=== PATIENT | female | born 1965 | race Caucasian/White ===

== ENCOUNTER → 2024-08-08 08:01 | Outpatient (REF) | payer OTHER, SELFPAY | LOC: HWRAD 08:01 | PROVIDERS: ATTENDING PHYSICIAN Physician Assistant Medical | DX: F17.210 Nicotine dependence, cigarettes, uncomplicated (principal) | CPT/HCPCS: 71271 ==

== ENCOUNTER → 2024-08-22 08:38 | Outpatient (REF) | payer OTHER, SELFPAY | LOC: HWWDC 08:38 | PROVIDERS: ATTENDING PHYSICIAN Physician Assistant Medical | DX: M85.80 Other specified disorders of bone density and structure, unspecified site (principal); Z12.31 Encounter for screening mammogram for malignant neoplasm of breast | CPT/HCPCS: 77063; 77067; 77080 ==

== ENCOUNTER 2024-10-20 13:35 | Inpatient (IN) | payer OTHER, SELFPAY ==
[2024-10-20] VITALS (10 sets, daily range): BP systolic 93–137; BP diastolic 64–87; BMI 23.8; BMI 22.7
[2024-10-20 10:50] LABS: % Basophils 0.5 % (0-2); % Eosinophils 2.7 % (0-6); % Immature Granulocytes 0.5 % (0-0.5); % Lymphocytes 12.4 % (20.5-51.1); % Monocytes 4.6 % (1.7-9.3); % Neutrophils 79.3 % (42.2-75.2); Absolute Basophils 0.1 10^3/uL (0-0.2); Absolute Eosinophils 0.3 10^3/uL (0-0.7); Absolute Immature Granulocytes 0.1 10^3/uL (0-0.05); Absolute Lymphocytes 1.1 10^3/uL (1.2-3.4); Absolute Monocytes 0.4 10^3/uL (0.1-0.6); Absolute Neutrophils 7.2 10^3/uL (1.4-6.5); Hematocrit 37.2 % (37.0-47.0); Hemoglobin 12.5 g/dL (12.0-16.0); Mean Corp Hgb Conc. 33.6 g/dL (33.0-37.0); Mean Corpuscular Hgb 27.4 pg (27.0-31.0); Mean Corpuscular Volume 81.6 fL (81.0-99.0); Mean Platelet Volume 10.5 fL (7.4-10.4); Nucleated Red Blood Cells % 0 %; Platelet Count 206 10^3/uL (130-400); Red Blood Cell Count 4.56 10^6/uL (4.20-5.40); Red Cell Dist. Width 13.8 % (11.5-14.5); White Blood Cell Count 9.1 10^3/uL (4.8-10.8)
--- NOTE | 2024-10-20 10:59 | ED.GENMED ---
History of Present Illness
General
Chief Complaint: Fever
Time Seen by Provider: 10/20/24 10:59
History of Present Illness
History of Present Illness:
TIME OF INITIAL ENCOUNTER: 11 AM
HPI: Patient presents with nonproductive cough over the past week. 4 days ago, she started having fevers. She is a smoker. She does not necessarily feel short of breath. She states that she only has 1 kidney as she donated the other kidney.
EXAM:
GENERAL: Well appearing in no distress, she is febrile
HEENT: Moist oral mucosa
CARDIOVASCULAR: No murmurs, tachycardic heart rate, regular rhythm, No chest wall tenderness
PULMONARY: No respiratory distress, breath sounds are fairly clear but she does have wheeze only with coughing
ABDOMEN: Soft with no peritoneal signs, no tenderness
NEUROLOGIC: Excellent strength all extremities, no coordination deficits
PSYCHIATRIC: Appropriate mental status, normal insight and judgement
EXTREMITIES: Nontender, no edema, moves all extremities equally
SKIN: No rash, no lesions
NUMBER AND COMPLEXITY OF PROBLEMS ADDRESSED AT THE ENCOUNTER
� Chronic conditions affecting care: Donated left kidney
� Acute Exacerbation and/or Progression of Chronic Illness: This is an acute problem
� Differential Diagnosis includes: Viral syndrome, bronchitis, COPD/emphysema, pneumonia
AMOUNT AND/OR COMPLEXITY OF DATA TO BE REVIEWED AND ANALYZED
� I performed an independent evaluation of and my interpretation is:
EKG: Sinus 132, left axis deviation
CT:
X-rays: Chest x-ray shows signs of pneumonia on the left side.
Laboratory Studies: White count 9.1, hemoglobin normal, sodium slightly low at 130, bicarb 18, creatinine with no old to compare
Other:
� Review of other/old records: I reviewed records, there is no blood work in [facility] to compare
� Clinical information was obtained by an independent historian: None needed
� Prescriptions/Medications Considered but not given:
� Further testing considered but not performed:
RISK OF COMPLICATIONS AND/OR MORBIDITY OR MORTALITY OF PATIENT MANAGEMENT
� Social determinants of health affecting care: Is a smoker
� Discussion with other providers: Hospitalist, Dr. Farris for admission
� Escalation of care including admission/observation vs risk of discharge considered: The patient arrived tachycardic and febrile. She was given fluids and Tylenol. She only has 1 kidney (donated the other) and creatinine is
1.3. Lactic and white blood cell count are normal. Chest x-ray shows signs of pneumonia on the left side. Placed on Rocephin and azithromycin. Recommend admission for further management.
ANY OTHER UPDATES:
Past History
Social History
Tobacco: Non-smoker
Personal: Single
Living: alone
Employment: Employed
Phy Exam
Physical Exam
Physical Exam:
See HPI
Sepsis
Sepsis Screening
Sepsis Assessment: Sepsis
Sepsis Screen
Sepsis Screen: Sepsis
Date: 10/20/24
Time: 12:47
Course
Orders/Labs/Results
Orders:
Orders
10/20/24 10:24
Electrocardiogram (*1) Urgent
Reason for Study: Tachycardia
EKG- Treatment ONCE
10/20/24 10:39
COVID-19 Antigen Urgent
Source: Nasal Swab
Complete Blood Count/With Diff Urgent
Comprehensive Metabolic Panel Urgent
Lactic Acid Urgent
Blood Culture Urgent
MELODY Source: Blood/Venous
Specimen Description:
Influenza A+B Rapid Molecular Urgent
MELODY Source: Nasal Swab
Specimen Description:
10/20/24 11:00
0.9% Sodium Chloride 1000 ml [Nss] 1,000 ml IV BOLUS
Acetaminophen [Tylenol] 1,000 mg PO NOW STA
10/20/24 11:01
CR Chest - 2 Views Urgent
Comment:
Reason For Exam: sepsis cough
10/20/24 11:08
Ipratropium/Albuterol Sulfate [Duoneb] 3 ml INH R NOW STA
MethylPREDNISolone PF [Solu-Medrol Pf] 125 mg IV NOW STA
10/20/24 11:24
Blood Culture Urgent
MELODY Source: Blood/Venous
Specimen Description:
10/20/24 12:38
Azithromycin 500 mg/250 ml [Zithromax Infusion] 500 mg in 250 ml IV NOW
CefTRIAXone [Rocephin] 1,000 mg IV NOW STA
Abnormal Lab Results
10/20/24
10:39
MPV 10.5 H fL
(7.4-10.4)
Abs Immat Gran (auto) 0.1 H 10^3/uL
(0-0.05)
Absolute Neuts (auto) 7.2 H 10^3/uL
(1.4-6.5)
Absolute Lymphs (auto) 1.1 L 10^3/uL
(1.2-3.4)
Neutrophils % 79.3 H %
(42.2-75.2)
Lymphocytes % 12.4 L %
(20.5-51.1)
Sodium 130 L mmol/L
(135-145)
Carbon Dioxide 18 L mmol/L
(22-30)
Creatinine 1.3 H mg/dL
(0.6-1.0)
Glucose 154 H mg/dl
(70-99)
AST 158 H U/L
(14-36)
ALT 60 H U/L
(0-35)
10/20/24 10:39
10/20/24 10:39
Vital Signs
Initial and Last Documented VS:
Initial Vital Signs
Temp Pulse Resp BP Pulse Ox
38.9 C H 142 16 137/87 95
10/20/24 10:12 10/20/24 10:12 10/20/24 10:12 10/20/24 10:12 10/20/24 10:12
Last Documented Vital Signs
Temp Pulse Resp BP Pulse Ox
39.4 C H 134 20 137/87 95
10/20/24 11:02 10/20/24 11:02 10/20/24 11:02 10/20/24 10:12 10/20/24 10:12
*Critical Care Note
Total Time (30-74mins, 75-104mins- exclusive of procedures): Not Applicable
ED Attending Note
-
Portions of this chart may have been created with voice recognition software.� Occasional wrong word or��sound alike� substitutions may have occurred due to the inherent limitations of voice recognition software.
Discharge Plan
Departure
Patient Disposition: Admit
Date of Disposition: 10/20/24
Time of Disposition: 12:46
Presentation/result/management discussed w/ accepting MD/DO: Hospitalist
Patient with high blood pressure during this ER visit?: Yes
Discharge Problem:
Pneumonia
Prescriptions:
No Action
calcium carbonate [Calcium 600] 600 mg calcium (1,500 mg) Tablet
600 mg PO DAILY
Tylenol Severe Allergy 12.5-500 mg Tablet
1 tab PO DAILYPRN PRN (Reason: MILD PAIN)
lisinopril 5 mg Tablet
5 mg PO DAILY
cholecalciferol (vitamin D3) [Vitamin D3] 25 mcg (1,000 unit) Tablet
25 mcg PO DAILY
Referrals:
Daniel Lenz MD [Family Provider, Family Practice]
Interventions
Interventions:
*Risk Screen - Suicide Last Done: 10/20/24 10:13
*General Assessment Last Done: 10/20/24 11:04
*Neglect/Abuse Screening Last Done: 10/20/24 10:13
*ED- Fall Risk Assessment Last Done: 10/20/24 11:04
*ED COVID-19 Vaccine History Last Done: 10/20/24 11:04
ED- Neurological Assessment Last Done: 10/20/24 11:04
Discharge Date and Time
Print Language: GERMAN
[2024-10-20 11:02] LABS: ALT (SGPT) 60 U/L (0-35); AST (SGOT) 158 U/L (14-36); Albumin 4.2 g/dl (3.5-5.0); Alkaline Phosphatase 66 U/L (38-126); Blood Urea Nitrogen 15 mg/dl (7-17); Calcium 9.2 mg/dl (8.4-10.2); Carbon Dioxide 18 mmol/L (22-30); Chloride 101 mmol/L (98-107); Glucose 154 mg/dl (70-99); Lactic Acid 1.3 mmol/L (0.7-2.0); Potassium 4.2 mmol/L (3.5-5.1); Sodium 130 mmol/L (135-145); Total Bilirubin 0.6 mg/dl (0.2-1.3); Total Protein 7.2 g/dl (6.3-8.2); eGFR 47.96
[2024-10-20 11:08] LABS: COVID-19 Antigen Negative (Negative)
[2024-10-20] MEDS: TYLENOL 1000 MG PO (11:10)
[2024-10-20] MEDS: SOLU-MEDROL PF 125 MG IV (11:19)
[2024-10-20] MEDS: DUONEB 3 ML INH (11:19)
[2024-10-20] MEDS: NSS 1000 IV ×2 (11:20→16:46)
[2024-10-20] MEDS: ROCEPHIN 1000 MG IV (12:49)
[2024-10-20] MEDS: ZITHROMAX INFUSION 250 IV (12:49)
--- NOTE | 2024-10-20 12:50 | HPS.HSE ---
Family Physician
-
Family Physician: Daniel Lenz
Chief Complaint
-
fever and cough
History of Present Illness
Patient is a 59-year-old female with past medical history significant for hypertension presented to [facility] ED for evaluation of fevers and cough for past week. Patient stated that approximately a week ago she started with a dry cough that has
progressively got worse and then started with high fevers, body aches and burning eyes. Patient reports that she donated her left kidney 23 years ago and kidney function is checked with routine labs. She states that creatine has always been within
normal limits post donatation. Patient denies any shortness of breath, chest pain, nausea, vomiting, constipation, diarrhea or urinary symptoms.
Medical History
Past Medical History
Past Medical History: Reports Other
Additional Past Medical History:
hypertension
Past Surgical History: Reports Other
Additional Past Surgical History:
left kidney donation 2001
Social History
Tobacco: Smoker (pack a day for 30-40 years )
Alcohol: Daily (1-2 mixed drinks per day )
Drug: None
Living: Alone
Employment: Employed
Family History
Family History: Not pertinent
Allergies / Home Medications
Allergies reflects when Allergies were last updated in [facility].
Home Medications with original date entered in [facility]
Allergy/Medication List:
Allergies
Allergy/AdvReac Type Severity Reaction Status Date / Time
tetracycline (Tetracycline) Allergy Unknown Verified 12/15/17 14:12
Home Medications
calcium carbonate (Calcium 600) 600 mg PO DAILY 10/20/24
cholecalciferol (vitamin D3) 25 mcg (1,000 unit) tablet (Vitamin D3) 25 mcg PO DAILY 10/20/24
diphenhydramine 12.5 mg-acetaminophen 500 mg tablet 1 tab PO DAILYPRN PRN MILD PAIN 10/20/24
lisinopril 5 mg tablet 5 mg PO DAILY 10/20/24
Review of Systems
-
History Source: Patient
Constitutional: Reports Fever and Other (body aches )
Respiratory: Reports Cough (dry cough )
Physical Exam
Vital Signs
Vital Signs
Temp Pulse Resp BP Pulse Ox
99.6 F 110 28 102/68 92
10/20/24 12:48 10/20/24 12:48 10/20/24 12:48 10/20/24 12:48 10/20/24 12:48
Physical Exam
General: Well Developed, Well Nourished, No Apparent Distress, Comfortable, Conversant and Fever
HEENT: NormoCephalic, Moist mucous membranes and Atraumatic
Respiratory: Clear
Cardiac: S1/S2, Regular Rhythm and Tachycardia
Breast: Deferred by me
GI: Soft, Non Tender, Non Distended and Normal Bowel Sounds
Rectal: Deferred by Provider
Genito-urinary: Deferred by me
Musculoskeletal: No Clubbing, No Cyanosis and No Edema
Skin: Warm and IV/Catheter Site
Neuro: Awake, Alert, AO x 3 and Nonfocal/grossly intact
Psych: Calm and Intact Judgment/Insight
Laboratory Results
-
10/20/24 10:39
10/20/24 10:39
Laboratory Results
Lactic Acid 1.3 mmol/L (0.7-2.0) 10/20/24 10:39
Total Bilirubin 0.6 mg/dl (0.2-1.3) 10/20/24 10:39
AST 158 U/L (14-36) H 10/20/24 10:39
ALT 60 U/L (0-35) H 10/20/24 10:39
Alkaline Phosphatase 66 U/L (38-126) 10/20/24 10:39
Data Reviewed
-
Diagnostic Radiology: Report Reviewed by me (CXR: Confluent airspace opacity within the LEFT mid to lower lung suspicious for pneumonia, likely within the left upper lobe/lingula.)
Medical Tests (Nuc Med, Echo, EKG etc): Report Reviewed by me (EKG: SINUS TACHYCARDIA LEFT AXIS DEVIATION)
Lab Data: Labs Reviewed by me (Na+ 130, HCO3 18, Creat 13, eGFR 47.96, AST 158, ALT 60)
Impression/Plan
-
IMPRESSION/PLAN:
#sepsis 2/2 community acquired pneumonia
Covid: negative
Influenza: negative
CXR: Confluent airspace opacity within the LEFT mid to lower lung suspicious for pneumonia, likely within the left upper lobe/lingula.
EKG: SINUS TACHYCARDIA
LEFT AXIS DEVIATION
- Admit to med/surg
- IV Ceftriaxone and Azithromycin
- DuoNeb PRN
- IVF NSS 80cc/hr
- supportive care
#acute kidney injury
#hyponatremia
Na+ 130, HCO3 18, Creat 1.3, eGFR 47.96
donated left kidney 23 years ago in 2001
- IVF
- monitor BMP
#transaminitis
AST 158, ALT 60
- monitor LFTs
#hypertension
- hold Lisinopril in setting of MIGUEL
Code status: full code
DVT prophylaxis: heparin sq
--- NOTE | 2024-10-20 13:41 | W.PN.UPDATE ---
Update Note
Progress Note Update
This is an addendum to H&P written by Bina Garcia on 10/20/2024. Patient seen and examined independently with [employer].
59-year-old female past medical history of hypertension, single kidney due to donation 23 years ago, presenting with nonproductive cough for the past week fever 4 days ago.
Patient with fever 103, tachycardia. Blood pressure 90s currently.
Labs unremarkable apart from sodium of 130, creatinine 1.3. Mild transaminitis.
Chest x-ray shows airspace opacity within the left mid to lower lung suspicious for pneumonia. COVID and influenza negative.
Patient with sepsis secondary to pneumonia. Blood cultures, IV fluids, ceftriaxone/azithromycin. MIGUEL likely prerenal. Hold lisinopril.
Monitor transaminitis which may be chronic from daily alcohol use.
--- NOTE | 2024-10-20 14:30 | CM ---
Reviewed chart and met with pt bedside in ED. [place] [facility], [address], 6 steps to bed and bath. No history of VN or SNF. Sister lives in [facility]. Has WC and walker in home, does not use either at this time.
PCP: Daniel Lenz
Pharmacy: [facility]
Plan: Home pending ongoing medical evaluation
--- NOTE | 2024-10-20 15:01 | EDRN ---
Patient sleeping comfortably at this time. Patient left undisturbed to rest and sleep hygiene.
[2024-10-20] MEDS: HEPARIN 5000 UNITS SC ×2 (16:46→23:05)
[2024-10-21] MEDS: NSS 1000 IV ×2 (04:46→17:39)
[2024-10-21 07:56] VITALS: BP 99/69
[2024-10-21 08:06] LABS: Hematocrit 34.8 % (37.0-47.0); Hemoglobin 11.6 g/dL (12.0-16.0); Mean Corp Hgb Conc. 33.3 g/dL (33.0-37.0); Mean Corpuscular Hgb 27.3 pg (27.0-31.0); Mean Corpuscular Volume 81.9 fL (81.0-99.0); Platelet Count 195 10^3/uL (130-400); Red Blood Cell Count 4.25 10^6/uL (4.20-5.40); White Blood Cell Count 9.5 10^3/uL (4.8-10.8)
[2024-10-21 08:43] LABS: % Basophils 0.2 % (0-2); % Immature Granulocytes 0.5 % (0-0.5); % Lymphocytes 9.2 % (20.5-51.1); % Neutrophils 86.1 % (42.2-75.2); Absolute Immature Granulocytes 0.1 10^3/uL (0-0.05); Absolute Lymphocytes 0.9 10^3/uL (1.2-3.4); Absolute Monocytes 0.4 10^3/uL (0.1-0.6); Absolute Neutrophils 8.2 10^3/uL (1.4-6.5); Nucleated Red Blood Cells % 0 %
[2024-10-21 08:44] LABS: ALT (SGPT) 140 U/L (0-35); AST (SGOT) 360 U/L (14-36); Albumin 3.5 g/dl (3.5-5.0); Alkaline Phosphatase 71 U/L (38-126); Blood Urea Nitrogen 20 mg/dl (7-17); Calcium 8.9 mg/dl (8.4-10.2); Carbon Dioxide 17 mmol/L (22-30); Chloride 109 mmol/L (98-107); Estimated Creatinine Clearance 60 ml/min; Glucose 127 mg/dl (70-99); Potassium 4.5 mmol/L (3.5-5.1); Sodium 136 mmol/L (135-145); Total Bilirubin 0.4 mg/dl (0.2-1.3); Total Protein 6.2 g/dl (6.3-8.2); eGFR > 60.00
[2024-10-21] MEDS: HEPARIN 5000 UNITS SC ×3 (08:47→23:04)
[2024-10-21] MEDS: VITAMIN D3 (cholecalciferol) 25 MCG PO (08:47)
[2024-10-21] MEDS: OSCAL CAL 500 500 MG PO (08:47)
[2024-10-21] MEDS: ROCEPHIN 1000 MG IV (12:06)
[2024-10-21] MEDS: ZITHROMAX INFUSION 250 IV (12:06)
[2024-10-21] MEDS: STERILE WATER FOR INJECTION 10 ML IV (12:06)
--- NOTE | 2024-10-21 14:18 | W.PN.HOSP.TC ---
Today's Communication/Plan
-
Monitor vitals
See plan
Continue with antibiotics
Follow cultures
Follow fever curve
Assessment / Plan
Assessment / Plan
General: Well Developed, Well Nourished, No Apparent Distress, Comfortable, Conversant and Fever
HEENT: NormoCephalic, Moist mucous membranes and Atraumatic
Respiratory: Clear
Cardiac: S1/S2, Regular Rhythm
GI: Soft, Non Tender, Non Distended and Normal Bowel Sounds
Musculoskeletal: No Clubbing, No Cyanosis and No Edema
Neuro: Awake, Alert, AO x 3 and Nonfocal/grossly intact
Psych: Calm and Intact Judgment/Insight
sepsis 2/2 community acquired pneumonia
Covid: negative
Influenza: negative
CXR: Confluent airspace opacity within the LEFT mid to lower lung suspicious for pneumonia, likely within the left upper lobe/lingula.
EKG: SINUS TACHYCARDIA
LEFT AXIS DEVIATION
- IV Ceftriaxone and Azithromycin
- DuoNeb PRN
- supportive care
acute kidney injury
hyponatremia
donated left kidney 23 years ago in 2001
- IVF
- monitor BMP
#transaminitis
- monitor LFTs
Denies abdominal pain
#hypertension
- hold Lisinopril in setting of MIGUEL
Code status: full code
DVT prophylaxis: heparin sq
Anticipated Discharge: 24 - 48 hours
Subjective/Interval History
-
Date of Service: October 21, 2024
denies pain
Objective Data
-
Labs:
Laboratory Results
10/21/24
06:43
WBC 9.5
Hgb 11.6 L
Hct 34.8 L
Plt Count 195
Sodium 136
Potassium 4.5
Chloride 109 H
Carbon Dioxide 17 L
BUN 20 H
Creatinine 0.9
Glucose 127 H
Calcium 8.9
Total Bilirubin 0.4
AST 360 H
ALT 140 H
Alkaline Phosphatase 71
Vital Signs:
Vital Signs
Temp Pulse Resp BP Pulse Ox
98.3 F 81 18 99/69 95
10/21/24 07:56 10/21/24 07:56 10/21/24 07:56 10/21/24 07:56 10/21/24 07:56
I&O
10/20/24 10/21/24 10/22/24
06:59 06:59 06:59
Intake Total 720 / 720
Balance 720 / 720
[2024-10-21 14:57] VITALS: BP 102/72
[2024-10-21 23:23] VITALS: BP 106/65
[2024-10-22] MEDS: NSS 1000 IV ×2 (04:42→17:29)
[2024-10-22 07:20] VITALS: BP 119/80
[2024-10-22 07:24] LABS: % Basophils 0.1 % (0-2); % Eosinophils 0.1 % (0-6); % Immature Granulocytes 0.7 % (0-0.5); % Lymphocytes 15.3 % (20.5-51.1); % Neutrophils 75.8 % (42.2-75.2); Absolute Immature Granulocytes 0.1 10^3/uL (0-0.05); Absolute Lymphocytes 1.3 10^3/uL (1.2-3.4); Absolute Monocytes 0.7 10^3/uL (0.1-0.6); Absolute Neutrophils 6.3 10^3/uL (1.4-6.5); Hematocrit 32.7 % (37.0-47.0); Hemoglobin 10.9 g/dL (12.0-16.0); Mean Corp Hgb Conc. 33.3 g/dL (33.0-37.0); Mean Corpuscular Hgb 27.2 pg (27.0-31.0); Mean Corpuscular Volume 81.5 fL (81.0-99.0); Mean Platelet Volume 11.7 fL (7.4-10.4); Nucleated Red Blood Cells % 0 %; Platelet Count 200 10^3/uL (130-400); Red Blood Cell Count 4.01 10^6/uL (4.20-5.40); Red Cell Dist. Width 13.9 % (11.5-14.5); White Blood Cell Count 8.4 10^3/uL (4.8-10.8)
[2024-10-22 08:08] LABS: ALT (SGPT) 381 U/L (0-35); AST (SGOT) 698 U/L (14-36); Alkaline Phosphatase 101 U/L (38-126); Blood Urea Nitrogen 20 mg/dl (7-17); Calcium 8.9 mg/dl (8.4-10.2); Carbon Dioxide 19 mmol/L (22-30); Chloride 113 mmol/L (98-107); Estimated Creatinine Clearance 60 ml/min; Glucose 109 mg/dl (70-99); Potassium 4.4 mmol/L (3.5-5.1); Sodium 138 mmol/L (135-145); Total Bilirubin 0.4 mg/dl (0.2-1.3); Total Protein 5.4 g/dl (6.3-8.2); eGFR > 60.00
[2024-10-22] MEDS: VITAMIN D3 (cholecalciferol) 25 MCG PO (09:55)
[2024-10-22] MEDS: HEPARIN 5000 UNITS SC ×3 (09:55→23:28)
[2024-10-22] MEDS: OSCAL CAL 500 500 MG PO (09:55)
[2024-10-22] MEDS: TYLENOL 650 MG PO (09:56)
[2024-10-22] MEDS: ROCEPHIN 1000 MG IV (11:56)
[2024-10-22] MEDS: STERILE WATER FOR INJECTION 10 ML IV (11:56)
--- NOTE | 2024-10-22 12:18 | W.PN.HOSP.TC ---
Today's Communication/Plan
-
monitor vitals
see plan
Monitor LFTs
Ultrasound abdomen
Check hep panel
Continue antibiotics
Continue to hold lisinopril
Assessment / Plan
Assessment / Plan
General: Well Developed, Well Nourished, No Apparent Distress, Comfortable, Conversant and Fever
HEENT: NormoCephalic, Moist mucous membranes and Atraumatic
Respiratory: Clear
Cardiac: S1/S2, Regular Rhythm
GI: Soft, Non Tender, Non Distended and Normal Bowel Sounds
Musculoskeletal: No Edema
Neuro: Awake, Alert, AO x 3 and Nonfocal/grossly intact
Psych: Calm and Intact Judgment/Insight
sepsis 2/2 community acquired pneumonia
Covid: negative
Influenza: negative
CXR: Confluent airspace opacity within the LEFT mid to lower lung suspicious for pneumonia, likely within the left upper lobe/lingula.
EKG: SINUS TACHYCARDIA
LEFT AXIS DEVIATION
- Continue IV Ceftriaxone and Azithromycin
- DuoNeb PRN
- supportive care
acute kidney injury
hyponatremia
donated left kidney 23 years ago in 2001
- IVF
- monitor BMP
#transaminitis
- monitor LFTs, worse today. Ultrasound abdomen without any biliary obstruction
Denies abdominal pain
Check hep panel
Could likely be secondary to hypotension on admission
#hypertension
- hold Lisinopril
Code status: full code
DVT prophylaxis: heparin sq
I spent a total of 52 minutes with the patient or on the floor. More than 50% of this time involved counseling and coordination of care.
Anticipated Discharge: 24 - 48 hours
Subjective/Interval History
-
Date of Service: October 22, 2024
Denies pain
Objective Data
-
Labs:
Laboratory Results
10/22/24
06:32
WBC 8.4
Hgb 10.9 L
Hct 32.7 L
Plt Count 200
Sodium 138
Potassium 4.4
Chloride 113 H
Carbon Dioxide 19 L
BUN 20 H
Creatinine 0.9
Glucose 109 H
Calcium 8.9
Total Bilirubin 0.4
AST 698 H*
ALT 381 H
Alkaline Phosphatase 101
Vital Signs:
Vital Signs
Temp Pulse Resp BP Pulse Ox
97.9 F 71 17 119/80 97
10/22/24 07:20 10/22/24 07:20 10/22/24 07:20 10/22/24 07:20 10/22/24 07:20
I&O
10/21/24 10/22/24 10/23/24
06:59 06:59 06:59
Intake Total 720 / 720 720 / 720
Balance 720 / 720 720 / 720
[2024-10-22] MEDS: ZITHROMAX INFUSION 250 IV (13:16)
[2024-10-22 15:05] VITALS: BP 145/70
--- NOTE | 2024-10-22 15:21 | CM ---
CM reviewed chart, patient remains on IV antibiotics. Patient plan return home when stable. CM will continue to follow for all discharge planning needs.
Plan; return home when stable.
[2024-10-22 23:30] VITALS: BP 118/79
[2024-10-23] MEDS: NSS 1000 IV (06:44)
[2024-10-23 07:00] VITALS: BP 114/80
[2024-10-23 07:43] LABS: % Basophils 0.3 % (0-2); % Eosinophils 1.6 % (0-6); % Immature Granulocytes 1.3 % (0-0.5); % Lymphocytes 27.6 % (20.5-51.1); % Monocytes 10.1 % (1.7-9.3); % Neutrophils 59.1 % (42.2-75.2); Absolute Eosinophils 0.1 10^3/uL (0-0.7); Absolute Immature Granulocytes 0.1 10^3/uL (0-0.05); Absolute Lymphocytes 1.9 10^3/uL (1.2-3.4); Absolute Monocytes 0.7 10^3/uL (0.1-0.6); Hematocrit 32.2 % (37.0-47.0); Hemoglobin 10.6 g/dL (12.0-16.0); Mean Corp Hgb Conc. 32.9 g/dL (33.0-37.0); Mean Corpuscular Hgb 27.3 pg (27.0-31.0); Mean Platelet Volume 11.6 fL (7.4-10.4); Nucleated Red Blood Cells % 0 %; Platelet Count 206 10^3/uL (130-400); Red Blood Cell Count 3.88 10^6/uL (4.20-5.40); Red Cell Dist. Width 14.4 % (11.5-14.5); White Blood Cell Count 6.7 10^3/uL (4.8-10.8)
[2024-10-23 08:31] LABS: ALT (SGPT) 273 U/L (0-35); AST (SGOT) 261 U/L (14-36); Albumin 2.9 g/dl (3.5-5.0); Alkaline Phosphatase 109 U/L (38-126); Blood Urea Nitrogen 11 mg/dl (7-17); Calcium 8.4 mg/dl (8.4-10.2); Carbon Dioxide 19 mmol/L (22-30); Chloride 111 mmol/L (98-107); Estimated Creatinine Clearance 60 ml/min; Glucose 87 mg/dl (70-99); Potassium 3.9 mmol/L (3.5-5.1); Sodium 136 mmol/L (135-145); Total Bilirubin 0.4 mg/dl (0.2-1.3); Total Protein 5.2 g/dl (6.3-8.2); eGFR > 60.00
[2024-10-23] MEDS: HEPARIN 5000 UNITS SC ×3 (08:43→23:06)
[2024-10-23] MEDS: OSCAL CAL 500 500 MG PO (08:44)
[2024-10-23] MEDS: VITAMIN D3 (cholecalciferol) 25 MCG PO (08:44)
--- NOTE | 2024-10-23 11:55 | CM ---
CM reviewed chart, patient seen bedside, hopeful to discharge tomorrow. Patient reports she will have transportation home, denies needs from CM. Patient reports her sister will be returning home from [place], also has support from her neighbors. CM
will continue to follow for all discharge planning needs.
Plan; home no needs anticipated
[2024-10-23] MEDS: STERILE WATER FOR INJECTION 10 ML IV (12:03)
[2024-10-23] MEDS: ROCEPHIN 1000 MG IV (12:04)
--- NOTE | 2024-10-23 12:47 | W.PN.HOSP.TC ---
Today's Communication/Plan
-
monitor vitals
See plan
Hep panel pending
LFTs slowly improving
Continue antibiotics
Discharge planning
Assessment / Plan
Assessment / Plan
General: Well Developed, Well Nourished, No Apparent Distress, Comfortable, Conversant and Fever
HEENT: NormoCephalic, Moist mucous membranes and Atraumatic
Respiratory: Clear
Cardiac: S1/S2, Regular Rhythm
GI: Soft, Non Tender, Non Distended and Normal Bowel Sounds
Musculoskeletal: No Edema
Neuro: Awake, Alert, AO x 3 and Nonfocal/grossly intact
Psych: Calm and Intact Judgment/Insight
sepsis 2/2 community acquired pneumonia
Covid: negative
Influenza: negative
CXR: Confluent airspace opacity within the LEFT mid to lower lung suspicious for pneumonia, likely within the left upper lobe/lingula.
EKG: SINUS TACHYCARDIA
LEFT AXIS DEVIATION
- Continue IV Ceftriaxone and Azithromycin
- DuoNeb PRN
- supportive care
acute kidney injury
hyponatremia
donated left kidney 23 years ago in 2001
resolved
#transaminitis
- monitor LFTs, getting better today. Ultrasound abdomen without any biliary obstruction
Denies abdominal pain
Check hep panel
Could likely be secondary to hypotension on admission
#hypertension
- hold Lisinopril
Code status: full code
DVT prophylaxis: heparin sq
Anticipated Discharge: Within 24 hours
Subjective/Interval History
-
Date of Service: October 23, 2024
denies pain
Objective Data
-
Labs:
Laboratory Results
10/23/24
06:32
WBC 6.7
Hgb 10.6 L
Hct 32.2 L
Plt Count 206
Sodium 136
Potassium 3.9
Chloride 111 H
Carbon Dioxide 19 L
BUN 11
Creatinine 0.9
Glucose 87
Calcium 8.4
Total Bilirubin 0.4
AST 261 H
ALT 273 H
Alkaline Phosphatase 109
Vital Signs:
Vital Signs
Temp Pulse Resp BP Pulse Ox
99.1 F 92 20 114/80 97
10/23/24 07:00 10/23/24 07:00 10/23/24 07:00 10/23/24 07:00 10/23/24 07:00
I&O
10/22/24 10/23/24 10/24/24
06:59 06:59 06:59
Intake Total 720 / 720 1660 / 1660
Balance 720 / 720 1660 / 1660
[2024-10-23] MEDS: ZITHROMAX INFUSION 250 IV (13:28)
[2024-10-23 15:00] VITALS: BP 127/80
[2024-10-23 19:34] LABS: Hepatitis B Surface Antigen Negative (Negative)
[2024-10-23 19:52] LABS: Hepatitis A Antibody, Total Negative (Negative); Hepatitis B Core Ab, Total Negative (Negative); Hepatitis B Surface Antibody Negative; Hepatitis C Antibody Negative (Negative)
[2024-10-23 23:36] VITALS: BP 121/85
[2024-10-24 08:09] VITALS: BP 108/74
[2024-10-24 08:09] LABS: % Basophils 0.5 % (0-2); % Eosinophils 8.8 % (0-6); % Immature Granulocytes 2.4 % (0-0.5); % Lymphocytes 24.9 % (20.5-51.1); % Monocytes 7.9 % (1.7-9.3); % Neutrophils 55.5 % (42.2-75.2); Absolute Eosinophils 0.8 10^3/uL (0-0.7); Absolute Immature Granulocytes 0.2 10^3/uL (0-0.05); Absolute Lymphocytes 2.2 10^3/uL (1.2-3.4); Absolute Monocytes 0.7 10^3/uL (0.1-0.6); Absolute Neutrophils 4.8 10^3/uL (1.4-6.5); Hematocrit 35.1 % (37.0-47.0); Hemoglobin 11.4 g/dL (12.0-16.0); Mean Corp Hgb Conc. 32.5 g/dL (33.0-37.0); Mean Corpuscular Hgb 26.7 pg (27.0-31.0); Mean Corpuscular Volume 82.2 fL (81.0-99.0); Nucleated Red Blood Cells % 0 %; Platelet Count 243 10^3/uL (130-400); Red Blood Cell Count 4.27 10^6/uL (4.20-5.40); Red Cell Dist. Width 14.4 % (11.5-14.5); White Blood Cell Count 8.6 10^3/uL (4.8-10.8)
[2024-10-24] MEDS: VITAMIN D3 (cholecalciferol) 25 MCG PO (08:13)
[2024-10-24] MEDS: OSCAL CAL 500 500 MG PO (08:13)
[2024-10-24] MEDS: HEPARIN SC (08:14)
[2024-10-24 09:00] LABS: ALT (SGPT) 190 U/L (0-35); AST (SGOT) 104 U/L (14-36); Albumin 2.9 g/dl (3.5-5.0); Alkaline Phosphatase 94 U/L (38-126); Blood Urea Nitrogen 5 mg/dl (7-17); Calcium 8.6 mg/dl (8.4-10.2); Carbon Dioxide 25 mmol/L (22-30); Chloride 109 mmol/L (98-107); Estimated Creatinine Clearance 67 ml/min; Glucose 130 mg/dl (70-99); Potassium 3.7 mmol/L (3.5-5.1); Sodium 139 mmol/L (135-145); Total Bilirubin 0.3 mg/dl (0.2-1.3); Total Protein 5.3 g/dl (6.3-8.2); eGFR > 60.00
--- NOTE | 2024-10-24 11:06 | W.PN.HOSP.TC ---
Today's Communication/Plan
-
Monitor vital signs
see plan
Discharge today on oral antibiotics
Time of discharge 37 minutes
Assessment / Plan
Assessment / Plan
General: Well Developed, Well Nourished, No Apparent Distress, Comfortable, Conversant and Fever
HEENT: NormoCephalic, Moist mucous membranes and Atraumatic
Respiratory: Clear
Cardiac: S1/S2, Regular Rhythm
GI: Soft, Non Tender, Non Distended and Normal Bowel Sounds
Musculoskeletal: No Edema
Neuro: Awake, Alert, AO x 3 and Nonfocal/grossly intact
Psych: Calm and Intact Judgment/Insight
sepsis 2/2 community acquired pneumonia
Covid: negative
Influenza: negative
CXR: Confluent airspace opacity within the LEFT mid to lower lung suspicious for pneumonia, likely within the left upper lobe/lingula.
EKG: SINUS TACHYCARDIA
LEFT AXIS DEVIATION
- Switch antibiotics to oral
- DuoNeb PRN
- supportive care
acute kidney injury
hyponatremia
donated left kidney 23 years ago in 2001
resolved
#transaminitis
- monitor LFTs, getting better today. Ultrasound abdomen without any biliary obstruction
Denies abdominal pain
Hep panel negative, LFTs improving. Repeat CMP next week with primary care provider
Could likely be secondary to hypotension on admission
#hypertension
- hold Lisinopril, restart when blood pressure is high
Code status: full code
DVT prophylaxis: heparin sq
Anticipated Discharge: Today
Subjective/Interval History
-
Date of Service: October 24, 2024
denies pain
Objective Data
-
Labs:
Laboratory Results
10/24/24
06:41
WBC 8.6
Hgb 11.4 L
Hct 35.1 L
Plt Count 243
Sodium 139
Potassium 3.7
Chloride 109 H
Carbon Dioxide 25
BUN 5 L
Creatinine 0.8
Glucose 130 H
Calcium 8.6
Total Bilirubin 0.3
AST 104 H
ALT 190 H
Alkaline Phosphatase 94
Vital Signs:
Vital Signs
Temp Pulse Resp BP Pulse Ox
97.8 F 69 14 108/74 97
10/24/24 08:09 10/24/24 08:09 10/24/24 08:09 10/24/24 08:09 10/24/24 08:46
I&O
10/23/24 10/24/24 10/25/24
06:59 06:59 06:59
Intake Total 1660 / 1660
Balance 1660 / 1660
--- NOTE | 2024-10-24 11:10 | W.DCSUMMARY ---
Discharge Summary
Discharge Data
Date of Admission: 10/20/24
Date of Discharge: 10/24/24
-
Pending Results: No
Hospital Course
59-year-old female with past medical history of hypertension came to the hospital with sepsis secondary to community-acquired pneumonia. Patient was initially started on IV antibiotic which was later transitioned to oral antibiotics prior to
discharge. On this hospitalization patient also had acute kidney injury which over time continue to improve. She also had significant transaminitis which was later thought was possibly secondary to hypotension. Her LFTs continue to improve over
time and she was instructed to get repeat blood work outpatient. Ultrasound of the abdomen did not show any acute abnormality. Once her symptoms continue to improve, she was then discharged home with instructions to follow-up with all her
physicians outpatient.
Discharge Plan
-
Patient Disposition: Home (Routine Discharge)
Discharge Diagnosis/Procedures: Community-acquired pneumonia
Acute kidney injury
Hyponatremia
Transaminitis
Diet: As tolerated
Activity: As tolerated
Driving Restrictions: As prior to admission
Bathing Restrictions: None
Blood Work: CMP next week with primary care provider
Referrals:
Daniel Lenz MD [Family Provider, [facility]] - in less than 1 week
Prescriptions:
New
acetaminophen 325 mg Tablet
650 mg PO Q4HPRN PRN (Reason: mild pain/PIMENTEL/temp> 100.4F) Qty: 0 0RF
cefdinir 300 mg capsule
300 mg PO BID Qty: 10 0RF
azithromycin 500 mg tablet
500 mg PO DAILY 5 Days Qty: 5 0RF
Continued
calcium carbonate [Calcium 600] 600 mg calcium (1,500 mg) Tablet
600 mg PO DAILY
diphenhydramine-acetaminophen 12.5-500 mg Tablet
1 tab PO DAILYPRN PRN (Reason: MILD PAIN)
cholecalciferol (vitamin D3) [Vitamin D3] 25 mcg (1,000 unit) Tablet
25 mcg PO DAILY
Held
lisinopril 5 mg Tablet
5 mg PO DAILY
Hold Instructions: Restart when blood pressure greater than 140/90
Discharge Orders:
Discharge Patient (As Directed); Ordered 10/24/24
Ordered By: Bishnu Chang
Discharge Date and Time
Discharge Date/Time: 10/24/24 11:43
Print Language: TAJIK
--- NOTE | 2024-10-24 11:43 | CM ---
CM following for discharge planning. Pt will return home today with no needs.
== END 2024-10-24 11:43 | disposition home or self-care (01) | DRG 871 ==
LOC: 4 WEST ACU 13:35
PROVIDERS: Emergency Medicine; Nurse Practitioner Family; ADMITTING PHYSICIAN Hospitalist; ATTENDING PHYSICIAN Internal Medicine; EMERGENCY PHYSICIAN Emergency Medicine; FAMILY PHYSICIAN Family Medicine
DX: A41.9 Sepsis, unspecified organism (principal); J18.9 Pneumonia, unspecified organism; E87.1 Hypo-osmolality and hyponatremia; N17.9 Acute kidney failure, unspecified; I10 Essential (primary) hypertension; F17.210 Nicotine dependence, cigarettes, uncomplicated; Z11.52 Encounter for screening for COVID-19
CPT/HCPCS: 71046; 76700; 80053; 83605; 85025; 86704; 86705; 86706; 86708; 86709; 86803; 87040; 87340; 87502; 87811; 93005; 99285